=== PATIENT | female | born 2000 | race Two or more races ===

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

== ENCOUNTER 2021-04-14 22:37 | Emergency (ER) | payer BC ==
[~2021-04-14 22:37] MED LIST changes: -CETI10TA22 PO; +CETI10TA74 PO
== END 2021-04-15 02:52 | disposition left against medical advice (07) ==
LOC: ER 22:37
DX: R10.9 Unspecified abdominal pain (principal); Z53.21 Procedure and treatment not carried out due to patient leaving prior to being seen by health care provider

== ENCOUNTER 2021-06-19 17:41 | Emergency (ER) | payer BC ==
[~2021-06-19] VITALS: Ht 157.5 cm; Wt 68.5 kg
--- NOTE | 2021-06-19 19:04 | RAD ---
Single view chest dated 06/19/2021 7:02 PM: COMPARISON: None Clinical Indication: Chest pain. Findings: Single upright portable exam of the chest was performed. Heart size and mediastinal contours are with in normal limits. Lungs are clear. No consolidation or pleural effusion. No pneumothorax. IMPRESSION: No acute radiographic abnormality. Electronically signed by: Quinten Smith MD (06/19/2021 7:02 PM) [facility]
[2021-06-19 19:27] LABS: INFLUENZA A PATIENT NEGATIVE (NEGATIVE); INFLUENZA B PATIENT NEGATIVE (NEGATIVE)
[2021-06-19] MEDS ORDERED: BENZ-8 PO (19:33)
--- NOTE | 2021-06-19 19:33 | PHYS DOC ---
Past Medical History Past Medical History: No Pertinent History Past Surgical History: No Surgical History Smoking Status: Never Smoker Alcohol Use: None Drug Use: None General Adult EDM: Chief Complaint: CHEST WALL PAIN HPI: HPI: Patient is a 20 year old female who presents with sharp, central chest pain. Sergey basilia reports the pain began around 0900 this morning. She states that she has pain when she breathes in and coughs. She denies history of nasal congestion, sore throat, coughing prior to today, shortness of breath, palpitations. Patient not vaccinated against COVID-19 and has not received a flu shot this season. Review of Systems: Review of Systems: Constitutional: Denies fever, chills or generalized weakness Eyes: Denies change in visual acuity, visual field deficits or discharge HENT: See HPI Respiratory: See HPI Cardiovascular: See HPI GI: Denies abdominal pain, nausea, vomiting, bloody stools or diarrhea : Denies dysuria or hematuria Musculoskeletal: Denies back pain or joint pain Integument: Denies rash or other skin lesion Neurologic: Denies headache, focal weakness or sensory changes Heart Score: C/O Chest Pain: Yes HEART Score for Chest Pain: HEART Score for Chest Pain Response (Comments) Value History Slighlty/Non-Suspicious 0 ECG Normal 0 Age < 45 0 Risk Factors No Risk Factors 0 Troponin < Normal Limit 0 Total 0 Risk Factors: None Risk Scores: Score 0 - 3: 2.5% MACE over next 6 weeks - Discharge Home Score 4 - 6: 20.3% MACE over next 6 weeks - Admit for Clinical Observation Score 7 - 10: 72.7% MACE over next 6 weeks - Early Invasive Strategies Allergies: Allergies: Allergies Coded Allergies Type Severity Reaction Last Updated Verified No Known Drug Allergies 01/12/18 No Physical Exam: PE: Constitutional: Well developed, well nourished, no acute distress, non-toxic appearance. HENT: Normocephalic, atraumatic, bilateral external ears normal, oropharynx moist, no oral exudates, nose normal. Eyes: EOMI, conjunctiva normal, no discharge. Neck: Normal range of motion, no stridor. Cardiovascular: Heart rate regular rhythm, no murmur. Lungs & Thorax: Equal thoracic expansion, no reproducible chest wall tenderness on palpation, no crepitus, bilateral breath sounds clear to auscultation. Skin: Warm, dry, no erythema, no rash. Extremities: No tenderness, no cyanosis, no clubbing, ROM intact, no edema. Neurologic: Alert and oriented x4, steady and symmetrical upright gait, no focal deficits noted. Current Patient Data: Labs: Laboratory Tests Test 06/19/21 18:24 06/19/21 18:27 Influenza Type A Antigen Negative (NEGATIVE) Influenza Type B Antigen Negative (NEGATIVE) Troponin I High Sensitivity < 4 ng/L (4-50) L Vital Signs: Vital Signs Date Time Temp Pulse Resp B/P (MAP) Pulse Ox O2 Delivery O2 Flow Rate FiO2 06/19/21 17:47 98.5 83 20 120/74 (89) 97 Room Air 98.5 EKG: EKG: EKG Interpreted by Dr. Payton at 1800: Regular rate and rhythm 88 bpm with no ectopic beats. QT 356 ms/QTc 409 ms. No STEMI. Radiology/Procedures: Radiology/Procedures: PROCEDURE: CHEST AP ONLY Single view chest dated 06/19/2021 7:02 PM: COMPARISON: None Clinical Indication: Chest pain. Findings: Single upright portable exam of the chest was performed. Heart size and mediastinal contours are within normal limits. Lungs are clear. No consolidation or pleural effusion. No pneumothorax. IMPRESSION: No acute radiographic abnormality. Electronically signed by: Quinten Smith MD (06/19/2021 7:02 PM) [facility] Course & Med Decision Making: Course & Med Decision Making Pertinent Labs and Imaging studies reviewed. (See chart for details) Patient is a 20-year-old female who presents with sharp, central chest pain that began this morning. Patient history and exam consistent with pleuritic chest pain. Work-up today will include EKG, chest x-ray, labs, swabs for influenza A&B as well as COVID-19. Work-up today is largely unremarkable. Patient was given quarantine inst ructions until she receives COVID-19 swab results. Return precautions were provided. Patient understands and is agreeable to discharge plan. Dragon Disclaimer: Dragon Disclaimer: This electronic medical record was generated, in whole or in part, using a voice recognition dictation system. Departure Departure Impression: Primary Impression: Viral syndrome Additional Impression: Pleuritic chest pain Disposition: HOME / SELF CARE / HOMELESS Condition: STABLE Referrals: NO PCP (PCP) Patient Instructions: Viral Syndrome Additional Instructions: Follow the following supportive treatment measures: - Cool mist humidifier with plain water at bedside while you sleep - Mucinex (guaifenesin) per box instructions - Tessalon perles (benzonatate) for cough, especially at night before bed - Alternate ibuprofen and acetaminophen every four hours for body aches/fever/headache If antibiotics were prescribed, take them as directed. You have been tested for or diagnosed with COVID-19 infection. It is an infection caused by a new type of coronavirus. COVID-19 will cause cold-like or mild flu symptoms in most. It can cause more severe symptoms like problems b reathing in some. There is no treatment for COVID-19. The body will clear the infection over time. Self-care will help to ease discomfort. Steps to Take: - Rest as needed. - Choose healthy foods including fruits and vegetables. Drink water throughout the day. - Get plenty of sleep each night. - If you smoke, try to quit. It may ease breathing. - Avoid alcohol. - Keep Others Healthy - The virus can spread to others. Droplets are released every time you sneeze or cough. The droplets can get into the mouth, nose, or eyes of people near you and lead to infection. To lower the chances of spreading COVID-19 to others: Stay at home until your doctor has said it is safe to leave. If you tested positive this will mean staying isolated until both of the following are true: - At least 10 days have passed since the start of illness. - You are free of fever for at least 72 hours without the use of medicine. During this time: - Avoid public areas, events, or transportation. Do not return to work or school until your doctor has said it is safe to do so. - Call ahead if you need to go to a medical center. Let them know you may have COVID-19. It will help them guide you where to go. They may also ask you to wear a facemask when you come to the office. - If you call for emergency medical services, let them know you may have COVID- 19. While at home: - Try to avoid close contact with others. Stay about 6 feet away. - If possible, spend most of your time in a separate room from others. - Use a face mask if you will be in close contact with others such as sharing a room or vehicle. - Have someone wipe down common surfaces in the home. Use household furniture decals inspector every day on areas like doorknobs, counters, or sinks. - Cough or sneeze into a tissue. Throw the tissue away right after use. If a tissue is not available, cough or sneeze into your elbow. - Wash your hands often. Wash them after sneezing or coughing. Use soap and water and wash or at least 20 seconds. Alcohol based hand flue cleaner can be used if soap and water is not available. - Do not prepare food for others. Avoid sharing personal items like forks, spoons, or toothbrushes. - Avoid close contact with pets while you are sick. There is no evidence of the virus passing to pets. This is a safety step until more is known about this virus. - Isolation can be frustrating. Social interaction can help. Keep in touch with friends and family through phone and tech options. You can still interact with others in your home, just keep a safe distance of about 6 feet. Follow-up: - Your doctors office will check in with you to see if there are any changes in your health. - You may be asked to keep track of symptoms to share with them. They will also let you know when you are clear to be in public again. Contact your doctor if your recovery is not going as you expect. Get emergency care if you have problems such as: - Trouble breathing with oxygen saturation <90% - Nonstop chest pain or pressure - Changes in awareness, confusion, or problems waking - Lips or face have bluish color - Worsening of symptoms If you think you have an emergency, call for emergency medical services right away. As taken from [facility] Benzonatate (BENZONATATE) 100 Mg Capsule 1-2 CAP PO HS, #20 CAP Prov: ASHLY VILLANUEVA 06/19/21 ASHLY VILLANUEVA Jun 19, 2021 19:33
[2021-06-19 19:40] VITALS: BP 119/72
--- NOTE | 2021-06-20 12:20 | EKG ---
[facility] [address] [place] [address] Test Date: 2021-06-19 Test Time: 18:00:37 Pat Name: CARLOS LANDIN Department: Room: Gender: F Diet Kitchen Cook: : 2000 Requested By: ASHLY VILLANUEVA Order Number: [id number] Reading MD: Trace Calvin MD Measurements Intervals [place] Rate: 78 P: 56 IA: 130 QRS: 58 QRSD: 90 T: 22 QT: 356 QTc: 409 Interpretive Statements SINUS RHYTHM Electronically Signed On 06-23-2021 11:12:10 VINYL CUTTER by Trace Calvin MD
--- NOTE | 2021-06-20 17:09 | NUR ---
IP: Informed pt of negative covid test. Pt verbalized understanding.
== END 2021-06-19 19:35 | disposition home or self-care (01) ==
LOC: ER 17:41
DX: R07.81 Pleurodynia (principal); B34.9 Viral infection, unspecified; Z20.822 Contact with and (suspected) exposure to COVID-19
CPT/HCPCS: 71045; 84484; 87804; 93005; 99285; C9803; U0003

== ENCOUNTER 2021-07-03 22:56 | Emergency (ER) | payer BC ==
[~2021-07-03] VITALS: Ht 157.5 cm; Wt 66.4 kg
[~2021-07-03 22:56] MED LIST changes: +BENZ-8 PO
[2021-07-03 23:29] LABS: BILIRUBIN,URINE NEGATIVE (NEG); CLARITY,URINE CLEAR; COLOR,URINE YELLOW
[2021-07-03 23:30] LABS: NITRITE,URINE NEGATIVE (NEG); PH,URINE 6.5 (<5.0-8.0); PROTEIN,URINE NEGATIVE (NEG-TRACE); UROBILINOGEN,URINE 0.2 mg/dL (0.2 mg/dL)
[2021-07-03 23:31] LABS: BACTERIA,URINE MODERATE /HPF (0-FEW); RBC,URINE 0 /HPF (0-2)
--- NOTE | 2021-07-04 00:04 | PHYS DOC ---
Past Medical History Past Medical History: No Pertinent History Past Surgical History: No Surgical History Smoking Status: Never Smoker Alcohol Use: None Drug Use: None General Adult EDM: Chief Complaint: URINARY FREQUENCY HPI: HPI: Patient is a 20 year old female who presents to the ED today complaining of abdominal bloating and urinary frequency. Patient states her periods are supposed to start 3 days ago but they have not started. She states she is sexually active and does not use protection and could be . She states today she noted blood in her urine, denies any back pain, denies any urgency or dysuria Review of Systems: Review of Systems: Constitutional: Denies fever or chills. [] Eyes: Denies change in visual acuity. [] HENT: Denies nasal congestion or sore throat. [] Respiratory: Denies cough or shortness of breath. [] Cardiovascular: Denies chest pain or edema. [] GI: Reports abdominal bloating, denies nausea, vomiting, bloody stools or diarrhea. [] : Reports urinary frequency and blood in her urine, denies dysuria. [] Musculoskeletal: Denies back pain or joint pain. [] Integument: Denies rash. [] Neurologic: Denies headache, focal weakness or sensory changes. [] Psychiatric: Denies depression or anxiety. [] Heart Score: C/O Chest Pain: N/A Risk Factors: Risk Factors: DM, Current or recent (<one month) smoker, HTN, HLP, family history of CAD, obesity. Risk Scores: Score 0 - 3: 2.5% MACE over next 6 weeks - Discharge Home Score 4 - 6: 20.3% MACE over next 6 weeks - Admit for Clinical Observation Score 7 - 10: 72.7% MACE over next 6 weeks - Early Invasive Strategies Allergies: Allergies: Allergies Coded Allergies Type Severity Reaction Last Updated Verified No Known Drug Allergies 01/12/18 No Physical Exam: PE: Constitutional: Well developed, well nourished, no acute distress, non-toxic appearance. [] HENT: Normocephalic, atraumatic, bilateral external ears normal, oropharynx moist, no oral exudates, nose normal. [] Eyes: PERRLA, EOMI, conjunctiva normal, no discharge. [] Neck: Normal range of motion, no tenderness, supple, no stridor. [] Cardiovascular:Heart rate regular rhythm, no murmur [] Lungs & Thorax: Bilateral breath sounds clear to auscultation [] Abdomen: Bowel sounds normal, soft, no tenderness, no masses, no pulsatile masses. [] Skin: Warm, dry, no erythema, no rash. [] Back: No tenderness, no CVA tenderness. [] Extremities: No tenderness, no cyanosis, no clubbing, ROM intact, no edema. [] Neurologic: Alert and oriented X 3, normal motor function, normal sensory function, no focal deficits noted. [] Psychologic: Affect normal, judgement normal, mood normal. [] Current Patient Data: Labs: Laboratory Tests Test 07/03/21 23:11 07/03/21 23:13 Urine Collection Type Unknown Urine Color Yellow Urine Clarity Clear Urine pH 6.5 (<5.0-8.0) Urine Specific [place] 1.025 (1.000-1.030) Urine Protein Negative mg/dL (NEG-TRACE) Urine Glucose (UA) Negative mg/dL (NEG) Urine Ketones (Stick) 15 mg/dL (NEG) Urine Blood Negative (NEG) Urine Nitrite Negative (NEG) Urine Bilirubin Negative (NEG) Urine Urobilinogen Dipstick 0.2 mg/dL (0.2 mg/dL) Urine Leukocyte Esterase Negative (NEG) Urine RBC 0 /HPF (0-2) Urine WBC 1-4 /HPF (0-4) Urine Squamous Epithelial Cells Mod /LPF Urine Bacteria Moderate /HPF (0-FEW) Urine Mucus Marked /LPF POC Urine HCG, Qualitative Hcg negative (Negative) Vital Signs: Vital Signs Date Time Temp Pulse Resp B/P (MAP) Pulse Ox O2 Delivery O2 Flow Rate FiO2 07/03/21 23:00 98.6 102 16 126/69 (88) 100 Room Air 98.6 EKG: EKG: [] Radiology/Procedures: Radiology/Procedures: [] Course & Med Decision Making: Course & Med Decision Making Pertinent Labs and Imaging studies reviewed. (See chart for details) This is a 20-year-old female patient presenting to the ED today complaining of abdominal bloating, urinary frequency. She reports her menstrual cycle is running 3 days late and she had blood in her urine. Negative urine hCG, UA negative for blood nitrates, leukocytes urine is contaminated with squamous cells epithelium Most likely her menstrual cycle is about to start. She was discharged to home. Instructed to take Tylenol/ibuprofen for bloating. Instructed her to come back to the ED at any point symptoms worsen. Follow-up with PCP/OB next week Lc Disclaimer: Lc Disclaimer: This electronic medical record was generated, in whole or in part, using a voice recognition dictation system. Departure Departure Impression: Primary Impression: Urinary frequency Disposition: HOME / SELF CARE / HOMELESS Condition: STABLE Referrals: NO PCP (PCP) follow up in one week with your doctor TIERNEY ADORNO MD follow up in one week with your OBGY if you cycle does not start Patient Instructions: Urinary Frequency, Pediatric Additional Instructions: Urine test is negative. You do not have urinary tract infection today. I encourage you to push fluids, take Tylenol or Motrin for your pain. Follow-up with your SPECIALTY PERSON or the provided SPECIALTY PERSON in a week if you do not have your menstrual cycle MARK JOSEPH APRN Jul 04, 2021 00:04
[2021-07-04 00:08] VITALS: BP 110/76
== END 2021-07-04 00:14 | disposition home or self-care (01) ==
LOC: ER 22:56
DX: R35.0 Frequency of micturition (principal); R14.0 Abdominal distension (gaseous)
CPT/HCPCS: 81001; 81025; 87077; 87086; 87147; 87186; 99283